=== PATIENT | female | born 2000 | race Hispanic/Latino ===

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

== ENCOUNTER 2025-02-28 21:49 | Emergency (ER) | payer BC, MEDICAID ==
[~2025-02-28] VITALS: Ht 165.1 cm; Wt 56.7 kg
[~2025-02-28 21:49] MED LIST: DIPH-1242 PO; SULF1TAB42 PO
[2025-02-28 23:11] LABS: IMMATURE GRANULOCYTE ABSOLUTE 0.01 K/uL (0-1); NUCLEATED RED BLOOD CELLS 0.0 % (0.0-0.19); PLATELET COUNT (AUTO) 311 K/uL (130-400); RED BLOOD CELL COUNT(AUTO) 4.48 MIL/uL (4.00-5.50); RED CELL DISTRIBUTION WIDTH 12.6 % (11.0-15.5); WHITE BLOOD COUNT (AUTO) 5.5 K/uL (4.8-10.8)
[2025-02-28 23:13] LABS: APPEARANCE,URINE CLOUDY (CLEAR); GLUCOSE, URINE (UA) NEGATIVE (NEGATIVE); LEUKOCYTE ESTERASE ,URINE NEGATIVE Leu/uL (NEGATIVE); NITRATE,URINE 1+ (NEGATIVE); OCCULT BLOOD,URINE NEGATIVE (NEGATIVE)
[2025-02-28 23:16] LABS: ADD UA MICROSCOPIC YES
[2025-02-28 23:21] LABS: CREATININE 0.8 mg/dL (0.5-1.0); GLOMERULAR FILTR. RATE CALC 107.0 mL/min (>90); GLUCOSE,RANDOM 86.0 mg/dL (70-105); SODIUM SERUM 144.0 mmol/L (136-145); UREA NITROGEN, BLOOD 17.0 mg/dL (7-18)
[2025-02-28 23:26] LABS: ASPARTATE AMINOTRANSFERASE 81.0 U/L (10-37); TOTAL PROTEIN, SERUM 7.7 g/dL (6.0-8.3)
[2025-02-28 23:44] LABS: SQUAMOUS EPITHELIAL CELL,UR MANY /HPF (0-2)
[2025-02-28] MEDS ORDERED: IOHEXOL-350 75 ML VIAL IV ONE (23:52)
--- NOTE | 2025-03-01 01:56 | HMCIMG ---
EXAM: CT Abdomen and Pelvis with IV contrast CLINICAL HISTORY: Right-sided abdominal pain. TECHNIQUE: Thin collimated axial CT images of the abdomen and pelvis were obtained, with sagittal and coronal reformatted images also submitted. A CT scan is done according to ALARA (As Low As Reasonably Achievable). CONTRAST: Omnipaque 350 COMPARISON: None. FINDINGS: Unremarkable visualized lung parenchyma. No focal abnormality within the gallbladder, pancreas, spleen, adrenals, or kidneys. Mild hepatomegaly with periportal hypodensities in both lobes of the liver, suggesting hepatitis. There is no obvious bowel wall thickening. Bowel loops are normal in caliber without evidence of obstruction or ileus. The appendix is normal. There is no abnormality within the urinary bladder. Unremarkable uterus. Tiny follicles in the bilateral ovaries. Abdominal and pelvic vessels are patent. No lymphadenopathy. No free fluid. There is no acute osseous abnormality. IMPRESSIONS: Mild hepatomegaly with periportal hypodensities in both lobes of the liver, suggesting hepatitis. Clinical correlation and further evaluation with follow-up are suggested. Tiny follicles in the bilateral ovaries. /Pawel
[2025-03-01] MEDS ORDERED: MACR100 PO (02:40)
--- NOTE | 2025-03-01 02:41 | ERN ---
General Chief Complaint: Abdominal Pain Stated Complaint: C/O ABD PAIN WITH NAUSEA, HEADACHE Time Seen by MD: 21:56 Time Seen by Midlevel: 21:56 Source: patient History of Present Illness Initial Comments Patient is a 24-year-old female presenting to the emergency department with right upper quadrant and right lower quadrant abdominal pain. Patient states she was seen at [facility] the same complaint but was ultimately discharged with a negative workup. Allergies: Coded Allergies: ceftriaxone (Unverified Allergy, Unknown, 08/01/19) clindamycin (Unverified Allergy, Unknown, 03/03/25) Home Meds Active Scripts Nitrofurantoin/Nitrofuran Mac (Macrobid) 100 Mg Cap, 1 CAP PO BID for 7 Days, #14 CAP 0 Refills Prov:JONNY BARFIELD PAC 03/01/25 Diphenhydramine HCl (Benadryl) 25 Mg Cap, 25 MG PO BID PRN for RASH, #15 CAP Prov:FITTINGKAMI DIE REPAIRER TRIMMER DIES 10/13/21 Sulfamethoxazole/Trimethoprim (Bactrim Ds Tablet) 1 Each Tablet, 1 TAB PO BID for 7 Days, #14 TAB 0 Refills Prov:FITTING,KAMI DIE REPAIRER TRIMMER DIES 10/13/21 Past Medical History Past Medical History: Seizure Past Surgical History: Other Surgical History Other: BRAIN Female( History) LMP: Feb 14, 2025 ROS Dictation CONSTITUTIONAL: Negative except for HPI HEAD/FACE: Negative except for HPI EENT: Negative except for HPI RESPIRATORY: Negative except for HPI GASTROINTESTINAL/ABDOMINAL: Negative except for HPI GENITOURINARY: Negative except for HPI MUSCULOSKELETAL: Negative except for HPI INTEGUMENTARY: Negative except for HPI NEUROLOGICAL/PSYCH: Negative except for HPI HEMATOLOGIC/LYMPHATIC: Negative except for HPI All Systems Negative, Except as noted above. 13 point review of systems assessed and all negative except for above. Physical Exam Physical Exam Dictation Vital Signs reviewed General Appearance: Alert, oriented x 3, no acute distress, well developed, nourished. Head and Face: non-traumatic. Eyes: PERRL, pink conjunctivas, eyelid no trauma, anterior chamber with arcus senilis. Ears: Pinnas intact and no signs of trauma or erythema ear canals clear and no discharge TM no erythema Nose: No discharge, no bleeding. Oropharynx: Mouth normal, tongue pink, pharynx clear,no erythema, tonsils no exudates, no abscesses noted, mucous membrane moist Neck: Supple, non-tender, no thyromegaly, no masses, no JVD, no bruits Breast:Deferred Chest:No tenderness, no crepitus, no paradoxical movement, no retractions Lungs:Clear, well-ventilated, symmetric, no rales, no wheezing, no rhonchi, no stridor, good breath sounds bilaterally Heart: Regular rate, regular rhythm, no murmur, no gallops Vascular: no peripheral edema, Abdomen: Soft, positive bowel sounds, nondistended, no guarding, Right upper quadrant/right lower quadrant abdominal tenderness, no rebound, no masses no hepatomegaly, no splenomegaly, no Hancock's sign, no hernias. Rectal: Deferred Genital: Deferred Neurological: Normal speech, motor function intact, sensory function intact Musculoskeletal: Neck nontender, full range of motion, back nontender, full range of motion, Extremities: nontender, full range of motion Skin: Color pink, dry, no turgor, no rash, no lacerations, no abrasions, no contusions. Lymphatic: Deferred Results Laboratory and Microbiology Lab and Micro Result Laboratory Tests Test 02/28/25 23:00 02/28/25 23:02 White Blood Count 5.5 K/uL (4.8-10.8) Red Blood Count 4.48 MIL/uL (4.00-5.50) Hemoglobin 14.0 g/dL (12.0-16.0) Hematocrit 41.0 % (36-48) Mean Corpuscular Volume 91.5 fL (79-99) Mean Corpuscular Hemoglobin 31.3 pg (27.0-33.0) Mean Corpuscular Hemoglobin Concent 34.1 g/dL (32.0-36.0) Red Cell Distribution Width 12.6 % (11.0-15.5) Platelet Count 311 K/uL (130-400) Mean Platelet Volume 8.8 fL (7.5-10.5) Immature Granulocyte % (Auto) 0.2 % (0-1) Neutrophils (%) (Auto) 45.4 % (40.0-77.0) Lymphocytes (%) (Auto) 42.6 % (21.0-51.0) Monocytes (%) (Auto) 9.3 % (3.0-13.0) Eosinophils (%) (Auto) 1.6 % (0.0-8.0) Basophils (%) (Auto) 0.9 % (0.0-5.0) Neutrophils # (Auto) 2.5 K/uL (1.8-7.7) Lymphocytes # (Auto) 2.3 K/uL (1.0-4.8) Monocytes # (Auto) 0.5 K/uL (0.1-1.0) Eosinophils # (Auto) 0.09 K/uL (0.00-0.70) Basophils # (Auto) 0.05 K/uL (0.00-0.20) Absolute Immature Granulocyte (auto 0.01 K/uL (0-1) Nucleated Red Blood Cells 0.0 % (0.0-0.19) Sodium Level 144 mmol/L (136-145) Potassium Level 4.0 mmol/L (3.5-5.1) Chloride Level 107 mmol/L (101-111) Carbon Dioxide Level 25 mmol/L (21-32) Blood Urea Nitrogen 17 mg/dL (7-18) Creatinine 0.8 mg/dL (0.5-1.0) Glomerular Filtration Rate Calc 107 mL/min (>90) Random Glucose 86 mg/dL (70-105) Total Calcium 9.4 mg/dL (8.5-10.1) Total Bilirubin 0.4 mg/dL (0.2-1.0) Aspartate Amino Transf (AST/SGOT) 81 U/L (10-37) H Alanine Aminotransferase (ALT/SGPT) 69 U/L (12-78) Alkaline Phosphatase 87 U/L (50-136) Total Protein 7.7 g/dL (6.0-8.3) Albumin 3.9 g/dL (3.5-5.0) Lipase 52 U/L (16-77) Serum Test, Qualitative NEGATIVE (NEGATIVE) Urine Color DARK-YELLOW (YELLOW) Urine Appearance CLOUDY (CLEAR) H Urine pH 5.5 (5.0-8.0) Urine Specific [place] 1.028 (1.001-1.031) Urine Protein 30 mg/dL (NEGATIVE) H Urine Glucose (UA) NEGATIVE mg/dL (NEGATIVE) Urine Ketones NEGATIVE mg/dL (NEGATIVE) Urine Occult Blood NEGATIVE (NEGATIVE) Urine Nitrate 1+ (NEGATIVE) H Urine Bilirubin 0.5 mg/dL (NEGATIVE) H Urine Urobilinogen 2.0 mg/dL (0.2-1.0) H Urine Leukocyte Esterase NEGATIVE Luz Elena/uL Urine RBC 2-5 /HPF (0-1) H Urine WBC 2-5 /HPF (0-1) H Urine Squamous Epithelial Cells MANY /HPF (0-2) Urine Bacteria MOD /HPF (None Seen) Labs Reviewed?: Yes MDM MDM: Patient is a 24-year-old female presenting to the emergency department with right upper quadrant and right lower quadrant abdominal pain. Patient states she was seen at [facility] the same complaint but was ultimately discharged with a negative workup. On physical examination patient is in no acute distress. Initial vital signs are stable. Patient is afebrile and nontoxic appearing. However on physical examination there is right upper quadrant abdominal tenderness. CBC shows no leukocytosis. No anemia no thrombocytopenia. Chemistries are unremarkable. AST is slightly elevated at 81. Urinalysis shows positive nitrate with moderate bacteria consistent with a urinary tract infection. A CT scan of the abdomen/pelvis with contrast was performed which reveals mild hepatomegaly with periportal hypodensities in both lobes with the liver, suggesting hepatitis. However given normal liver function tests and normal blood work I believe hepatitis is highly unlikely. I discussed lab and imaging findings with the patient and I advised she follow up outpatient in48 hours for repeat liver function tests. Differential diagnosis: Urinary tract infection, pancreatitis, acute cholecystitis There are no social concerns with this patient. Prescription drug management Prescriptions will include: Macrobid Medical management and examination interpretation discussions were had by me with other qualified healthcare professionals as indicated for the patient's ca re. ED Course Orders Procedure Category Date Status Time Cbc With Differential LAB 02/28/25 Complete 22:35 Comprehensive LAB 02/28/25 Complete Metabolic Panel 22:35 Lipase LAB 02/28/25 Complete 22:35 Testing, LAB 02/28/25 Complete Serum Hcg 22:35 Urinalysis Profile LAB 02/28/25 Complete 22:35 Ct Abdomen/Pelvis CT 02/28/25 Resulted W/Contrast 22:35 Culture Urine RONEL 02/28/25 Complete 23:16 Iohexol (Omnipaque) PHA 02/28/25 Complete 23:52 Aztreonam (Azactam) PHA 03/01/25 Complete 03:00 Current Medications Medications (Trade) Dose Ordered Sig/Zenon Route PRN Reason Start Time Stop Time Status Last Admin Dose Admin Aztreonam (Azactam) 1 gm ONCE ONCE IVPB 03/01/25 03:00 03/01/25 03:00 DC 03/01/25 02:46 Iohexol (Omnipaque) 75 ml STK-MED ONCE IV 02/28/25 23:52 02/28/25 23:53 DC Vital Signs Date Time Temp Pulse Resp B/P (MAP) Pulse Ox O2 Delivery O2 Flow Rate FiO2 03/01/25 02:59 98.8 85 18 123/60 98 Room Air* 0 21 02/28/25 22:37 98.8 88 18 122/66 99 Room Air* 0 21 02/28/25 21:51 96.6 63 20 95/64 99 Room Air DX & DISP Disposition: Discharge Departure Impression: Primary Impression: Urinary tract infection Additional Impression: Hepatomegaly Condition: Stable Scripts Nitrofurantoin/Nitrofuran Mac (Macrobid) 100 Mg Cap 1 CAP PO BID for 7 Days, #14 CAP 0 Refills Prov: JONNY BARFIELD PAC 03/01/25 Additional Instructions: Your urinalysis is consistent with infection. You were given a dose aztreonam in the emergency department. A CT scan of the abdomen/pelvis was performed which reveals mild hepatomegaly (enlargement of the liver) with periportal hypodensities suggesting hepatitis. Periportal hypodensities also known as periportal edema are a nonspecific finding and does not necessarily mean true hepatitis. Your liver function tests are normal which makes hepatitis highly unlikely. Your CT scan finding is most likely secondary to an infection most likely your urinary tract infection. You were given antibiotics in the emergency department and were prescribed oral anti biotics for home. I suggest you repeat your blood work in 48 hours to evaluate your liver function tests. If you develop yellowing of the skin, yellowing of the eyes, severe abdominal pain, blood in the urine, please report to the ER for further evaluation. Referrals: CARMINE JUÁREZ MD (PCP) Time of Disposition: 02:37 I have reviewed the case, and I agree with, Diagnosis and Plan I performed the substantive portion of the visit. I have reviewed and personally made and approve the management plan that is documented in the note by myself or the NEVIN. I acknowledge for responsibility for the patient's management plan. JONNY BARFIELD PAC Mar 01, 2025 02:41
[2025-03-01] MEDS: AZTREONAM 1 GM VIAL IVPB ONE (02:46)
[2025-03-01 02:59] VITALS: BP 123/60; PULSE 85; RESP 18; TEMP 98.8; O2SAT 98
== END 2025-03-01 03:00 | disposition home or self-care (01) ==
LOC: EDH 21:49
DX: N39.0 Urinary tract infection, site not specified (principal); R16.0 Hepatomegaly, not elsewhere classified; Z88.1 Allergy status to other antibiotic agents
CPT/HCPCS: 36415; 74177; 80053; 81001; 83690; 84703; 85025; 87086; 96374; 99284; J3490; Q9967

== ENCOUNTER 2025-03-03 16:37 | Emergency (ER) | payer BC ==
[~2025-03-03] VITALS: Ht 165.1 cm; Wt 56.2 kg
[~2025-03-03 16:37] MED LIST changes: +MACR100 PO
[2025-03-03 16:39] VITALS: BP 108/65; PULSE 86; RESP 20; TEMP 98.3
[2025-03-03 17:13] LABS: IMMATURE GRANULOCYTE ABSOLUTE 0.04 K/uL (0-1); NUCLEATED RED BLOOD CELLS 0.0 % (0.0-0.19); PLATELET COUNT (AUTO) 409 K/uL (130-400); RED BLOOD CELL COUNT(AUTO) 4.97 MIL/uL (4.00-5.50); RED CELL DISTRIBUTION WIDTH 12.2 % (11.0-15.5); WHITE BLOOD COUNT (AUTO) 8.7 K/uL (4.8-10.8)
[2025-03-03 17:22] LABS: CREATININE 0.8 mg/dL (0.5-1.0); GLOMERULAR FILTR. RATE CALC 107.0 mL/min (>90); GLUCOSE,RANDOM 100.0 mg/dL (70-105); SODIUM SERUM 142.0 mmol/L (136-145); UREA NITROGEN, BLOOD 19.0 mg/dL (7-18)
[2025-03-03 17:32] LABS: ASPARTATE AMINOTRANSFERASE 26.0 U/L (10-37); TOTAL PROTEIN, SERUM 8.6 g/dL (6.0-8.3)
--- NOTE | 2025-03-03 17:48 | ERN ---
General Chief Complaint: Abdominal Pain Stated Complaint: RLQ ABDOMINAL PAIN Time Seen by MD: 16:40 Source: patient History of Present Illness Initial Comments Patient is a 24-year-old female coming in for re-evaluation. Per patient she wa s told that her liver was inflamed. Per patient she was diagnosed with a urinary tract infection but since she was told she had a liver that was inflamed she was concerned. Per patient previous UR advise her to follow up an ER in 3-4 days for re-evaluation of liver enzymes. Allergies: Coded Allergies: ceftriaxone (Unverified Allergy, Unknown, 08/01/19) clindamycin (Unverified Allergy, Unknown, 03/03/25) Home Meds Active Scripts Nitrofurantoin/Nitrofuran Mac (Macrobid) 100 Mg Cap, 1 CAP PO BID for 7 Days, #14 CAP 0 Refills Prov:JONNY BARFIELD PAC 03/01/25 Diphenhydramine HCl (Benadryl) 25 Mg Cap, 25 MG PO BID PRN for RASH, #15 CAP Prov:FITTINGKAMIP 10/13/21 Sulfamethoxazole/Trimethoprim (Bactrim Ds Tablet) 1 Each Tablet, 1 TAB PO BID for 7 Days, #14 TAB 0 Refills Prov:FITTINGKAMI ELECTRIC RANGE SERVICER 10/13/21 Past Medical History Past Medical History: Seizure Past Surgical History: Other Surgical History Other: BRAIN Female( History) LMP: Feb 13, 2025 ROS Dictation CONSTITUTIONAL: No chills, no fever, no weakness, no diaphoresis, no malaise. HEAD/FACE: No signs of trauma. EENT: No eye pain, no blurred vision, no tearing, no double vision, no ear pain, no ear discharge, no nose pain, no nasal congestion, no throat pain, no throat swelling, no mouth pain. RESPIRATORY: No cough, no orthopnea, no SOB, no stridor, no wheezing. CARDIOVASCULAR: No chest pain, no edema, no palpitations, no syncope. GASTROINTESTINAL/ABDOMINAL: No abdominal pain, no constipation, no diarrhea, no nausea, no vomiting. GENITOURINARY: No abnormal discharge, no dysuria, no frequent urination, no hematuria. No complaints of pain in the genitals. MUSCULOSKELETAL: No back pain, no gout, no joint pain, no joint swelling, no muscle pain, no muscle stiffness, no neck pain. INTEGUMENTARY: No change in color, no change in hair/nails, no dryness, no lesion, no lumps, no rash. NEUROLOGICAL/PSYCH: No anxiety, not depressed, no emotional problem, no headache, no numbness, no pre-existing deficit, no history of seizures, no tremors, no weakness. HEMATOLOGIC/LYMPHATIC: Not anemic, no history of blood clots, no apparent bleeding, no bruising, glands not swollen. All Systems Negative, Except as Noted. Physical Exam Physical Exam Dictation VITAL SIGNS: Reviewed. GENERAL APPEARANCE: Alert, oriented x3, no acute distress, obese. HEAD AND FACE: Non-traumatic. EYES: PERRL, pink conjunctivas, eyelid no trauma, anterior chamber clear. EARS: Pinnas intact and no signs of trauma or erythema. Ear canals clear and no discharge. TMs no erythema. NOSE: No discharge, no bleeding. OROPHARYNX: Mouth normal, teeth no caries, tongue pink. Pharynx clear, no erythema. Tonsils no exudates, no abscesses noted. Mucous membrane moist. NECK: Supple, non-tender, no thyromegaly, no masses, no JVD, no bruits. BREAST: Deferred. CHEST: No tenderness, no crepitus, no paradoxical movement, no retractions. LUNGS: Clear, well-ventilated, symmetric, no rales, no wheezing, no rhonchi, no stridor, good breath sounds bilaterally. HEART: Regular rate, regular rhythm, no murmur, no gallops. VASCULAR: No peripheral edema. ABDOMEN: Soft, positive bowel sounds, nondistended, no guarding, nontender, no rebound, no masses no hepatomegaly, no splenomegaly, no Hancock's sign, no hernias. RECTAL: Deferred. GENITAL: Deferred. NEUROLOGICAL: Normal speech, gross motor function intact, gross sensory function intact. MUSCULOSKELETAL: Neck nontender, full range of motion, back nontender, full range of motion. EXTREMITIES: Nontender, full range of motion. SKIN: Color pink, dry, no turgor, no rash, no lacerations, no abrasions, no contusions. LYMPHATICS: Deferred. Results Laboratory and Microbiology Lab and Micro Result Laboratory Tests Test 03/03/25 16:52 White Blood Count 8.7 K/uL (4.8-10.8) Red Blood Count 4.97 MIL/uL (4.00-5.50) Hemoglobin 15.3 g/dL (12.0-16.0) Hematocrit 45.0 % (36-48) Mean Corpuscular Volume 90.5 fL (79-99) Mean Corpuscular Hemoglobin 30.8 pg (27.0-33.0) Mean Corpuscular Hemoglobin Concent 34.0 g/dL (32.0-36.0) Red Cell Distribution Width 12.2 % (11.0-15.5) Platelet Count 409 K/uL (130-400) #H Mean Platelet Volume 8.4 fL (7.5-10.5) Immature Granulocyte % (Auto) 0.5 % (0-1) Neutrophils (%) (Auto) 77.0 % (40.0-77.0) Lymphocytes (%) (Auto) 17.4 % (21.0-51.0) L Monocytes (%) (Auto) 4.2 % (3.0-13.0) Eosinophils (%) (Auto) 0.2 % (0.0-8.0) Basophils (%) (Auto) 0.7 % (0.0-5.0) Neutrophils # (Auto) 6.7 K/uL (1.8-7.7) Lymphocytes # (Auto) 1.5 K/uL (1.0-4.8) Monocytes # (Auto) 0.4 K/uL (0.1-1.0) Eosinophils # (Auto) 0.02 K/uL (0.00-0.70) Basophils # (Auto) 0.06 K/uL (0.00-0.20) Absolute Immature Granulocyte (auto 0.04 K/uL (0-1) Nucleated Red Blood Cells 0.0 % (0.0-0.19) Sodium Level 142 mmol/L (136-145) Potassium Level 4.4 mmol/L (3.5-5.1) Chloride Level 103 mmol/L (101-111) Carbon Dioxide Level 29 mmol/L (21-32) Blood Urea Nitrogen 19 mg/dL (7-18) H Creatinine 0.8 mg/dL (0.5-1.0) Glomerular Filtration Rate Calc 107 mL/min (>90) Random Glucose 100 mg/dL (70-105) Total Calcium 9.9 mg/dL (8.5-10.1) Total Bilirubin 0.5 mg/dL (0.2-1.0) Aspartate Amino Transf (AST/SGOT) 26 U/L (10-37) Alanine Aminotransferase (ALT/SGPT) 57 U/L (12-78) Alkaline Phosphatase 95 U/L (50-136) Total Protein 8.6 g/dL (6.0-8.3) H Albumin 4.5 g/dL (3.5-5.0) Labs Reviewed?: Yes MDM MDM: Differential diagnosis: Wellness exam, UTI, re-evaluation, Rationale: Tests considered and ordered secondary to shared decision making include: Previous outside records reviewed: Old ER visits. Risk of complication and/or morbidity or mortality of patient management: None Medications-Per medication reconciliation Need for hospitalization: Patient does not meet criteria for hospitalization. Need for emergency major/minor surgery: No Patient is a 24-year-old female coming in for re-evaluation of abnormal labs. Per patient she was told on the previous visit that she has a urinary tract infection in his currently taking antibiotics but at the time was advised that her liver was inflamed. Patient states that ER and be told her to follow up in ER in three days for repeat labs. Laboratory workup specifically liver enzymes within normal limits. Patient will be discharged in stable condition patient was educated on proper follow up with the PCP for ongoing management of UTI. Patient that has had antibiotics and was advised to finish them. ED Course Orders Procedure Category Date Status Time Cbc With Differential LAB 03/03/25 Complete 16:45 Comprehensive LAB 03/03/25 Complete Metabolic Panel 16:45 Urinalysis LAB 03/03/25 Logged W/Microscopic 16:45 Drug Screen Urine LAB 03/03/25 Logged 16:46 Vital Signs Date Time Temp Pulse Resp B/P (MAP) Pulse Ox O2 Delivery O2 Flow Rate FiO2 03/03/25 16:39 98.2 86 20 108/65 98 Room Air 0 DX & DISP Disposition: Discharge Departure Impression: Primary Impression: Wellness examination Additional Impression: UTI (urinary tract infection) Condition: Stable Additional Instructions: FOLLOW-UP WITH PRIMARY CARE PROVIDER IN 1 TO 2 DAYS. TAKE MEDICATIONS DIRECTED HERE IN THE EMERGENCY ROOM. OKAY TO CONTINUE HOME MEDICATIONS UNLESS OTHERWISE DISCUSSED DURING YOUR VISIT IN THE EMERGENCY ROOM TODAY. RETURN TO YOUR NEAREST EMERGENCY ROOM IF SYMPTOMS WORSEN OR IF THERE IS NO IMPROVEMENT. CALL 911 IF YOU NEED IMMEDIATE ASSISTANCE. TAKE TYLENOL [id number] NEEDED AND IF NO CONTRAINDICATIONS ARE PRESENT. INCREASE ORAL HYDRATION. A WOUND CULTURE OR URINE CULTURE WAS ORDERED HERE IN THE EMERGENCY ROOM DEPARTMENT PLEASE FOLLOW-UP WITH PRIMARY CARE PROVIDER AND ADVISE THEM TO GET REPORTS FROM OUR FACILITY. IF YOU HAD ANY FRANNIE WRAP/SPLINTS THAT WERE APPLIED HERE, PLEASE DO NOT REMOVE THEM UNTIL YOU SEE YOUR PRIMARY CARE OR SPECIALTY. Referrals: Referrals: CARMINE JUÁREZ MD (PCP) Time of Disposition: 17:47 TODD HIGGINS MD Mar 03, 2025 17:47
--- NOTE | 2025-03-03 18:19 | NUR ---
PT CALLED SEVERAL TIMES FOR DC INSTRUCTIONS,NO ANSWER.
== END 2025-03-03 18:21 | disposition home or self-care (01) ==
LOC: EDH 16:37
DX: Z88.1 Allergy status to other antibiotic agents (principal); N39.0 Urinary tract infection, site not specified
CPT/HCPCS: 36415; 80053; 85025; 99283